=== PATIENT | male | born 1945 | race Caucasian/White ===

== ENCOUNTER 2017-09-24 22:46 | Emergency (ER) | payer OTHER ==
[~2017-09-24] VITALS: Ht 185.4 cm; Wt 103.4 kg
[~2017-09-24 22:46] MED LIST: ELAVIL50 MG PO; PREVACID30 MG PO; ZOCOR40 MG PO
[2017-09-24 23:25] LABS: HEMATOCRIT 40.5 % (38.0-50.0); HEMOGLOBIN 13.9 G/DL (12.5-16.6); MCH 31.1 PG (29.0-34.0); MCHC 34.3 G/DL (30.0-36.0); MCV 90.6 FL (86-99); PLATELET COUNT 157 K/uL (156-360); RBC DIS.WIDTH-CV 12.3 % (11.8-14.6); RBC DIS.WIDTH-SD 41.1 % (39-53); RED BLOOD COUNT 4.47 M/uL (4.00-5.50); WHITE BLOOD COUNT 7.6 K/uL (4.1-10.2)
[2017-09-24 23:36] LABS: CHLORIDE 98 mEq/L (99-109); POTASSIUM 4.3 mEq/L (3.7-5.4); SODIUM 143 mEq/L (136-147)
[2017-09-24 23:38] LABS: GLUCOSE 108 mg/dL (70-99)
[2017-09-24 23:42] LABS: CREATININE 1.3 mg/dL (0.6-1.3); GFR ESTIMATE (CALCULATED) 58 mL/min/ (58.99-99999)
[2017-09-24 23:43] LABS: UREA NITROGEN (BUN) 20 mg/dL (9-23)
[2017-09-24 23:48] LABS: TROP-I INTERPRETATION NEGATIVE; TROPONIN-I < 0.01 ng/mL (0.0-0.30)
[2017-09-25] MEDS ORDERED: NEXIUM20 MG PO (00:25)
[2017-09-25 01:03] VITALS: BP 152/91
[2017-09-25] MEDS ORDERED: PROAIR HFA8.5 GM IH (15:39)
[2017-09-25] MEDS ORDERED: PRILOSEC20 MG PO (15:44)
[2017-09-25] MEDS ORDERED: METOPROLOL SUCC25 MG PO (15:45)
== END 2017-09-25 01:05 | disposition home or self-care (01) ==
LOC: EME 22:46
DX: K21.9 Gastro-esophageal reflux disease without esophagitis (principal); R07.9 Chest pain, unspecified; R11.0 Nausea; Z87.891 Personal history of nicotine dependence
CPT/HCPCS: 71046; 80048; 84484; 85027; 93005; 99281; 99284

== ENCOUNTER 2017-09-25 11:56 | Inpatient (IN) | payer OTHER ==
[~2017-09-25] VITALS: Ht 175.3 cm; Wt 102.3 kg
[~2017-09-25 11:56] MED LIST changes: +NEXIUM20 MG PO
[2017-09-25 13:17] LABS: BASOPHIL (%) 0.2 % (0-1); EOSINOPHIL (%) 0 % (0-5); HEMATOCRIT 39.7 % (38.0-50.0); HEMOGLOBIN 13.6 G/DL (12.5-16.6); IMMATURE GRANULOCYTE (%) 0.2 % (0.0-0.7); LYMPHOCYTE (%) 7.5 % (15-42); LYMPHOCYTE COUNT 0.9 K/uL (1.0-2.8); MCH 30.9 PG (29.0-34.0); MCHC 34.3 G/DL (30.0-36.0); MCV 90.2 FL (86-99); MONOCYTE (%) 6.8 % (3-12); MONOCYTE COUNT 0.8 K/uL (0-0.8); NEUTROPHIL (%) 85.3 % (45-76); NEUTROPHIL COUNT 10.4 K/uL (1.8-6.4); PLATELET COUNT 202 K/uL (156-360); RBC DIS.WIDTH-CV 12.4 % (11.8-14.6); RBC DIS.WIDTH-SD 40.5 % (39-53); WHITE BLOOD COUNT 12.2 K/uL (4.1-10.2)
[2017-09-25 13:30] LABS: ALBUMIN 4.2 g/dL (3.2-4.8); CHLORIDE 95 mEq/L (99-109); POTASSIUM 4.2 mEq/L (3.7-5.4); SODIUM 140 mEq/L (136-147)
[2017-09-25 13:32] LABS: GLUCOSE 148 mg/dL (70-99); TOTAL PROTEIN 7.2 g/dL (6.4-8.3)
[2017-09-25 13:34] LABS: TOTAL BILIRUBIN 0.4 mg/dL (0.0-1.0)
[2017-09-25 13:36] LABS: ALKALINE PHOSPHATASE 118 IU/L (3-129); CREATININE 1.6 mg/dL (0.6-1.3); GFR ESTIMATE (CALCULATED) 46 mL/min/ (58.99-99999)
[2017-09-25 13:37] LABS: AST (GOT) 17 IU/L (2-34)
[2017-09-25 13:39] LABS: ALT (GPT) 16 IU/L (3-49)
[2017-09-25 13:47] LABS: UREA NITROGEN (BUN) 32 mg/dL (9-23)
[2017-09-25 14:03] LABS: TROP-I INTERPRETATION NEGATIVE; TROPONIN-I 0.03 ng/mL (0.0-0.30)
[2017-09-25] MEDS ORDERED: PROAIR HFA8.5 GM IH (15:39)
[2017-09-25] MEDS ORDERED: PRILOSEC20 MG PO (15:44)
[2017-09-25] MEDS ORDERED: METOPROLOL SUCC25 MG PO (15:45)
[2017-09-25 16:49] LABS: BASOPHIL (%) 0.1 % (0-1); EOSINOPHIL (%) 0 % (0-5); HEMATOCRIT 37.5 % (38.0-50.0); HEMOGLOBIN 12.7 G/DL (12.5-16.6); IMMATURE GRANULOCYTE (%) 0.3 % (0.0-0.7); LYMPHOCYTE (%) 11.4 % (15-42); LYMPHOCYTE COUNT 1.1 K/uL (1.0-2.8); MCH 30.8 PG (29.0-34.0); MCHC 33.9 G/DL (30.0-36.0); MCV 90.8 FL (86-99); MONOCYTE (%) 8.1 % (3-12); MONOCYTE COUNT 0.8 K/uL (0-0.8); NEUTROPHIL (%) 80.1 % (45-76); NEUTROPHIL COUNT 7.7 K/uL (1.8-6.4); PLATELET COUNT 164 K/uL (156-360); RBC DIS.WIDTH-CV 12.4 % (11.8-14.6); RBC DIS.WIDTH-SD 40.5 % (39-53); RED BLOOD COUNT 4.13 M/uL (4.00-5.50); WHITE BLOOD COUNT 9.7 K/uL (4.1-10.2)
[2017-09-25 17:06] LABS: PTT 27.5 SEC (25-37)
[2017-09-25 20:32] LABS: HEMOGLOBIN 11.3 G/DL (12.5-16.6); MCV 91.7 FL (86-99)
[2017-09-25 21:40] VITALS: BP 128/73
[2017-09-26 00:10] VITALS: BP 130/79
[2017-09-26 04:07] VITALS: BP 142/68
[2017-09-26 06:58] LABS: BASOPHIL (%) 0.2 % (0-1); EOSINOPHIL (%) 0.6 % (0-5); EOSINOPHIL COUNT 0.1 K/uL (0-0.3); HEMATOCRIT 32.6 % (38.0-50.0); HEMOGLOBIN 10.5 G/DL (12.5-16.6); IMMATURE GRANULOCYTE (%) 0.4 % (0.0-0.7); LYMPHOCYTE (%) 27.8 % (15-42); LYMPHOCYTE COUNT 2.3 K/uL (1.0-2.8); MCH 30.1 PG (29.0-34.0); MCHC 32.2 G/DL (30.0-36.0); MCV 93.4 FL (86-99); MONOCYTE (%) 12.8 % (3-12); MONOCYTE COUNT 1.1 K/uL (0-0.8); NEUTROPHIL (%) 58.2 % (45-76); NEUTROPHIL COUNT 4.9 K/uL (1.8-6.4); PLATELET COUNT 123 K/uL (156-360); RBC DIS.WIDTH-CV 12.8 % (11.8-14.6); RBC DIS.WIDTH-SD 43.8 % (39-53); RED BLOOD COUNT 3.49 M/uL (4.00-5.50); WHITE BLOOD COUNT 8.4 K/uL (4.1-10.2)
[2017-09-26 07:05] LABS: HEMATOCRIT 32.4 % (38.0-50.0); HEMOGLOBIN 10.5 G/DL (12.5-16.6); MCV 93.9 FL (86-99)
[2017-09-26 07:10] VITALS: BP 132/71
[2017-09-26 09:34] LABS: APPEARANCE CLOUDY ((CLEAR)); BILIRUBIN NEGATIVE; BLOOD NEGATIVE; COLOR YELLOW ((YELLOW)); GLUCOSE (STRIP) NEGATIVE; KETONES NEGATIVE; LEUKOCYTES NEGATIVE; NITRITE NEGATIVE; PROTEIN (STRIP) NEGATIVE; SPECIFIC GRAVITY 1.041 (1.000-1.030); UROBILINOGEN 0.2 MG/DL (0.2-1.0)
[2017-09-26 10:16] LABS: AMORPHOUS PHOSPHATE CRYSTALS 3+; BACTERIA NONE SEEN /HPF; EPITHELIAL CELLS NONE SEEN /HPF; MUCUS NONE SEEN /LPF; RED BLOOD CELLS 0-5 /HPF (0-5); WHITE BLOOD CELLS 0-5 /HPF (0-5)
[2017-09-26 11:02] LABS: CHLORIDE 107 MEQ/L (99-109); POTASSIUM 4.1 MEQ/L (3.7-5.4); SODIUM 145 MEQ/L (136-147)
[2017-09-26 11:07] LABS: UREA NITROGEN (BUN) 28 mg/dL (9-23)
[2017-09-26 11:13] LABS: CREATININE 1.1 MG/DL (0.6-1.3); GFR ESTIMATE (CALCULATED) > 59 mL/min/ (58.99-99999); GLUCOSE 101 mg/dL (70-99)
[2017-09-26 11:48] VITALS: BP 126/7
[2017-09-26 15:40] VITALS: BP 139/68
[2017-09-26 20:00] VITALS: BP 142/71
[2017-09-26 20:16] LABS: HEMATOCRIT 33.5 % (38.0-50.0); HEMOGLOBIN 10.9 G/DL (12.5-16.6); MCV 94.1 FL (86-99)
[2017-09-27] VITALS: BP 92/63
[2017-09-27 04:47] VITALS: BP 97/64
[2017-09-27 05:53] LABS: HEMATOCRIT 29.3 % (38.0-50.0); HEMOGLOBIN 9.8 G/DL (12.5-16.6); MCHC 33.4 G/DL (30.0-36.0); MCV 92.7 FL (86-99); PLATELET COUNT 126 K/uL (156-360); RBC DIS.WIDTH-CV 12.5 % (11.8-14.6); RBC DIS.WIDTH-SD 42.7 % (39-53); RED BLOOD COUNT 3.16 M/uL (4.00-5.50); WHITE BLOOD COUNT 6.8 K/uL (4.1-10.2)
[2017-09-27 06:13] LABS: CHLORIDE 107 MEQ/L (99-109); CREATININE 1.1 MG/DL (0.6-1.3); GFR ESTIMATE (CALCULATED) > 59 mL/min/ (58.99-99999); GLUCOSE 105 mg/dL (70-99); POTASSIUM 3.9 MEQ/L (3.7-5.4); SODIUM 141 MEQ/L (136-147); UREA NITROGEN (BUN) 22 mg/dL (9-23)
[2017-09-27 09:06] VITALS: BP 123/64
[2017-09-27 13:14] VITALS: BP 145/80
== END 2017-09-27 16:35 | disposition home or self-care (01) | DRG 377 ==
LOC: EME 11:56 → EDOF 18:54 → 5SOUTH 18:54 → ENRESERV 18:56 → 5SOUTH 20:59
PROVIDERS: Emergency Medicine; Hospitalist; Internal Medicine; Physician Assistant
DX: K92.2 Gastrointestinal hemorrhage, unspecified (principal); K21.0 Gastro-esophageal reflux disease with esophagitis; I10 Essential (primary) hypertension; K22.70 Barrett's esophagus without dysplasia; F43.10 Post-traumatic stress disorder, unspecified; E78.5 Hyperlipidemia, unspecified; N17.9 Acute kidney failure, unspecified; D62 Acute posthemorrhagic anemia; J44.9 Chronic obstructive pulmonary disease, unspecified; K25.9 Gastric ulcer, unspecified as acute or chronic, without hemorrhage or perforation; I45.10 Unspecified right bundle-branch block; K44.9 Diaphragmatic hernia without obstruction or gangrene; A41.9 Sepsis, unspecified organism; F43.12 Post-traumatic stress disorder, chronic; Z66 Do not resuscitate; K25.4 Chronic or unspecified gastric ulcer with hemorrhage; Z87.19 Personal history of other diseases of the digestive system; Z87.11 Personal history of peptic ulcer disease; Z87.891 Personal history of nicotine dependence
CPT/HCPCS: 71046; 71260; 74177; 74220; 80048; 80053; 81003; 83605; 84484; 85014; 85018; 85025; 85025 91; 85027; 85610; 85730; 86850; 86900; 86901; 87040; 88305; 88342 TC; 93005; 94799; 99202; 99281; 99284; 99285; C9113; J2250; J2270; J2543; J2765; J3010; J7030